=== PATIENT | female | born 1965 | race African-American/Black ===

== ENCOUNTER 2016-06-01 10:47 | Emergency (ER) | payer MEDICAID ==
[~2016-06-01] VITALS: Ht 167.6 cm; Wt 84.8 kg
[2016-06-01] MEDS ORDERED: SODIUM CHLORIDE 0.9% 1,000 ML IV ONE (11:46)
[2016-06-01] MEDS ORDERED: ASPirin 325 MG TAB PO ONE (12:00)
[2016-06-01] MEDS ORDERED: NITROGLYCERIN 0.4 MG SL TAB SL ONE (12:00)
[2016-06-01 12:31] LABS: Basophils # (auto) 0.1 uL; Basophils % (auto) 0.8 % (0.0-2.0); Eosinophils # (auto) 0.1 uL; Eosinophils % (auto) 0.7 % (0.0-7.0); Hemoglobin 13.7 g/dL (12.2-16.2); Lymphocytes # (auto) 4.4 uL; Lymphocytes % (auto) 51.2 % (10.0-50.0); Mean Corpuscular Hemoglobin 28.2 pg (28.0-32.0); Mean Corpuscular Hgb Conc. 32.6 g/dL (32.0-36.0); Mean Corpuscular Volume 86.6 fL (80.0-100.0); Mean Platelet Volume 9.4 fL (7.4-10.4); Monocytes # (auto) 0.4 uL; Neutrophils # (auto) 3.6 uL; Neutrophils % (auto) 42.3 % (37.0-80.0); Platelet Count (auto) 366 10^3/uL (140-450); Red Cell Distribution Width 13.3 % (11.6-16.0); White Blood Cell 8.5 10^3/uL (4.4-10.8)
[2016-06-01 12:42] LABS: INR 1.04 (0.9-1.15); Partial Thromboplastin Time 26.4 sec (22.64-33.71); Prothrombin Time 10.7 sec (9.37-12.3)
[2016-06-01 12:59] LABS: Albumin 4.2 g/dL (3.4-5.0); BUN/Creatinine Ratio 16.1; Bilirubin, Total 0.6 mg/dL (0.2-1.0); Calcium 9.4 mg/dL (8.5-10.1); Potassium 3.9 mmol/L (3.5-5.1)
[2016-06-01 13:30] LABS: B-Type Natriuretic Peptide 173.33 pg/mL (0-100); Temperature: 22.5 C (20.0-25.0)
[2016-06-01] MEDS ORDERED: cloNIDine HCL 0.1 MG TAB PO ONE ×2 (13:30→13:45)
[2016-06-01 14:54] VITALS: BP 155/81
== END 2016-06-01 15:16 | disposition home or self-care (01) ==
LOC: ER 10:47
DX: R07.89 Other chest pain (principal); I10 Essential (primary) hypertension; F17.210 Nicotine dependence, cigarettes, uncomplicated; Z90.710 Acquired absence of both cervix and uterus
CPT/HCPCS: 36415; 71010; 80053; 83880; 84484; 85025; 85049; 85610; 85730; 93005; 96360; 99285; J7030